=== PATIENT | male | born 1980 | race American Indian/Alaskan Native ===

== ENCOUNTER 2017-08-25 17:04 | Emergency (ER) | payer MEDICAID, OTHER ==
[2017-08-25 17:05] VITALS: BMI 25.0
[2017-08-25] MEDS ORDERED: Tmp-Smz 800 mg-160 mg DS Tab PO STA (17:48)
[2017-08-25] MEDS ORDERED: TDAP Vaccine 0.5 mL Syr IM ONE (17:48)
[2017-08-25 17:50] VITALS: O2SAT 100
--- NOTE | 2017-08-25 18:02 | ED PDOC ---
Arrival/HPI - General Chief Complaint: Lower Extremity Problem/Injury Time Seen by Provider: 08/25/17 17:22 Historian: Patient - History of Present Illness Narrative History of Present Illness (Text): 08/25/17 17:54 36yr old male presents today with blister to right great toe and maceration to the toes x 1 week. pt states last week he was working in the rain and his shoes were wet all day. pt states when he got home his feet were macerated and white. pt states he developed a blister over the right great toe and then cut the skin off of the blister. pt states he is seeing clear discharge from the bilateral big toes. pt denies pain. denies numbness, weakness and tingling in the extremities. pt denies fever/chills. no medications have been taken at home. no other complaints. Time/Duration: 1 week Symptom Course: Improving Past Medical History - Provider Review Nursing Documentation Reviewed: Yes - Travel History Have you recently traveled outside [place] w/in the past 3 mons?: No - Past History Past History: No Previous - Tetanus Immunization Tetanus Immunization: OTH - Psychiatric Hx Psychophysiologic Disorder: No Hx Substance Use: Yes (PERCOCET) - Past Surgical History Past Surgical History: No Previous - Suicidal Assessment Feels Threatened In Home Enviroment: No Family/Social History - Physician Review Nursing Documentation Reviewed: Yes Family/Social History: Unknown Family HX Smoking Status: Light Smoker < 10 Cigarettes Daily Hx Alcohol Use: Yes Hx Substance Use: Yes (PERCOCET) Hx Substance Use Treatment: No Allergies/Home Meds Allergies/Adverse Reactions: Allergies No Known Allergies Allergy (Verified 08/25/17 17:19) Review of Systems - Review of Systems Constitutional: absent: Fatigue, Fevers Respiratory: absent: SOB, Cough Cardiovascular: absent: Chest Pain, Palpitations Gastrointestinal: absent: Abdominal Pain, Nausea, Vomiting Genitourinary Male: absent: Dysuria, Frequency, Hematuria Musculoskeletal: absent: Back Pain Skin: Rash, Other (blister right great toe) Psychiatric: absent: Anxiety, Depression Physical Exam Vital Signs Reviewed: Yes Vital Signs Temp Pulse Resp BP Pulse Ox 08/25/17 17:20 98.8 F 77 16 143/83 100 Temperature: Afebrile Blood Pressure: Normal Pulse: Regular Respiratory Rate: Normal Appearance: Positive for: Well-Appearing, Non-Toxic, Comfortable Pain Distress: None Mental Status: Positive for: Alert and Oriented X 3 - Systems Exam Head: Present: Atraumatic Neck: Present: Normal Range of Motion Respiratory/Chest: Present: Clear to Auscultation Cardiovascular: Present: Regular Rate and Rhythm Abdomen: No: Tenderness Upper Extremity: Present: Normal Inspection, Normal ROM Lower Extremity: Present: Normal ROM, Other (right foot; there is an open blister over the volar aspect of the distal tip of the toe extending to the nail with slight erythema; no tenderness. cap refill< 2. sensation and distal pulses intact; No edema. there is a small open blister noted to the right 2nd toe; no erythema; no tenderness. left foot; no edema, no erythema; no ecchymosis; no purulent discharge, no blisters or lesions. + onchymyosis noted to all toenails. ). No: Tenderness, Swelling, Deformity, Capillary Refill < 2 s Neurological: Present: GCS=15, Speech Normal Skin: Present: Warm, Dry Psychiatric: Present: Alert, Oriented x 3 Medical Decision Making ED Course and Treatment: 08/25/17 18:34 pt is non toxic well appearing; no distress. stable vitals. fingerstick 84 keflex and bactrim given Po pt with blister to right great toe and 2nd toe; most likely from feet in wet boots all day - 4 days prior. will cover with abx for open blister. advised f/ u with rigging up man. Advised keeping feet clean and dry, and open to the air. advised immediate return if symptoms worsen, persist or fi new symptoms develop. Patient verbalizes understanding of discharge instructions and need for immediate followup. all aspects of this case were discussed the attending of record. Impression: blister, onychomycosis Keflex one capsule 4 times daily 7 days Bactrim 1 tablet twice daily 7 days Keep feet clean, DRY, and open to air. Follow-up with the rigging up man within the next 2 days Follow-up the primary care physician within the next 2 days Return immediately if symptoms worsen persist or if new concerning symptoms develop - Medication Orders Current Medication Orders: Discontinued Medications Cephalexin Monohydrate (Keflex) 500 mg PO STAT STA PRN Reason: Protocol Stop: 08/25/17 17:49 Last Admin: 08/25/17 17:59 Dose: 500 mg Tetanus/Reduced Diphtheria/Acell Pertussis (Boostrix Vaccine Inj) 0.5 ml IM .ONCE ONE Stop: 08/25/17 17:49 Last Admin: 08/25/17 17:59 Dose: 0.5 ml Trimethoprim/Sulfamethoxazole (Bactrim Ds Tab) 1 tab PO STAT STA PRN Reason: Protocol Stop: 08/25/17 17:49 Last Admin: 08/25/17 17:59 Dose: 1 tab Disposition/Present on Arrival - Present on Arrival Any Indicators Present on Arrival: No History of DVT/PE: No History of Uncontrolled Diabetes: No Urinary Catheter: No History of Decub. Ulcer: No History Surgical Site Infection Following: None - Disposition Have Diagnosis and Disposition been Completed?: Yes Diagnosis: Blister, Onychomycosis Disposition: HOME/ ROUTINE Disposition Time: 18:15 Patient Plan: Discharge Patient Problems: Current Active Problems Problem Status Onset Blister Acute Onychomycosis Acute Condition: GOOD Discharge Instructions (ExitCare): Blisters, Fungal Nail Infections Additional Instructions: Keflex one capsule 4 times daily 7 days Bactrim 1 tablet twice daily 7 days Keep feet clean, DRY, and open to air. Follow-up with the rigging up man within the next 2 days Follow-up the primary care physician within the next 2 days Return immediately if symptoms worsen persist or if new concerning symptoms develop Prescriptions: Cephalexin [Keflex] 500 mg PO QID #28 capsule Sulfamethoxazole/Trimethoprim [Bactrim DS 800 mg-160 mg] 1 tab PO BID #14 tab Referrals: Aric Hanson DPM [Staff Provider] - Follow up with primary [facility] [Outside] - Follow up with primary [facility] [Outside] - Follow up with primary Paty Pruitt MD [Staff Provider] - Follow up with primary Forms: [employer] (Mauritanian), WORK NOTE
[2017-08-25 18:58] VITALS: BP 140/82; PULSE 70; RESP 18; TEMP 98.5
== END 2017-08-25 18:56 | disposition home or self-care (01) ==
LOC: ED 17:04
DX: S90.421A Blister (nonthermal), right great toe, initial encounter (principal); S90.424A Blister (nonthermal), right lesser toe(s), initial encounter; X58.XXXA Exposure to other specified factors, initial encounter; Y92.89 Other specified places as the place of occurrence of the external cause; Y99.8 Other external cause status; B35.1 Tinea unguium; Z23 Encounter for immunization

== ENCOUNTER 2017-09-02 14:21 | Emergency (ER) | payer MEDICAID, OTHER ==
[2017-09-02 14:22] VITALS: BMI 25.0
--- NOTE | 2017-09-02 14:50 | ED PDOC ---
Arrival/HPI - General Chief Complaint: Trauma Time Seen by Provider: 09/02/17 14:43 Historian: Patient - History of Present Illness Narrative History of Present Illness (Text): 09/02/17 14:45 36 year old male, with past history of substance abuse, presents to the Emergency department via EMS s/p slip and fall prior to arrival. Patient admits to illicit drug use and claims he slipped and fell and hit his head with probable loss of consciousness. Patient additionally admits to smoking weed prior to arrival but does not know what was in it. pt felt funny after smoking it; Patient denies any suicidal ideation, homicidal ideation or hallucinations including visual, auditory and tactile. Patient does not know why he was brought to the Emergency department and wants to be released. Patient currently denies any medical complaints. Patient denies any fever/chills/sweats, chest pain/shortness of breath/palpitations, abdominal pain/nausea/vomiting, numbness/ tingling, urinary/bowel changes/complaints, sick contact/travel or any other complaints; no gross bleeding noted; Patient was brought to the Emergency department for medical clearance. pt denied slurr speech pt denied any other complaints PCP: unknown Time/Duration: Prior to Arrival Symptom Onset: Gradual Activities at Onset: Light Context: Street Past Medical History - Provider Review Nursing Documentation Reviewed: Yes - Travel History Have you recently traveled outside US w/in the past 3 mons?: No - Past History Past History: No Previous - Infectious Disease Hx of Infectious Diseases: None - Tetanus Immunization Tetanus Immunization: OTH - Psychiatric Hx Substance Use: Yes - Past Surgical History Past Surgical History: No Previous - Suicidal Assessment Feels Threatened In Home Enviroment: No Family/Social History - Physician Review Nursing Documentation Reviewed: Yes Family/Social History: No Known Family HX Smoking Status: Light Smoker < 10 Cigarettes Daily Hx Alcohol Use: Yes Hx Substance Use: Yes Hx Substance Use Treatment: No Allergies/Home Meds Allergies/Adverse Reactions: Allergies No Known Allergies Allergy (Verified 08/25/17 17:19) Review of Systems - Physician Review All systems were reviewed & negative as marked: Yes - Review of Systems Constitutional: Normal. absent: Fevers Eyes: Normal. absent: Vision Changes ENT: Normal Respiratory: Normal. absent: SOB Cardiovascular: Normal. absent: Chest Pain, Palpitations Gastrointestinal: Normal. absent: Abdominal Pain, Stool Changes, Nausea, Vomiting Genitourinary Male: Normal. absent: Urinary Output Changes Musculoskeletal: Other (right foot pain). absent: Arthralgias, Back Pain, Neck Pain Skin: Normal Neurological: Normal Endocrine: Normal Hemo/Lymphatic: Normal Psychiatric: Normal. absent: Suicidal Ideation Physical Exam - Physical Exam Narrative Physical Exam (Text): 09/02/17 14:55 General: alert/awake, GCS = 15, oriented x 3, sitting on bed, uncomfortable, slightly uncooperative, interactive; anxious Head: NC, noted right mid frontal forehead slight swelling, NO skin abrasion/ bleeding/lacerations noted, NO gross tenderness, no fluctuance noted; no gross deformities noted EYE: PERRLA, EOMI, sclera anicteric, no nystagmus, no photophobia; visual field intact b/l Facial: WNL Oral: uvula/tongue are midline, no exudate/lesions, no drooling/stridor, no dysphonia; fair dentitions; mild dry oral mucosa NECK: intact ROM, no midline tenderness, no nuchal rigidity, no meningeal signs ; no step off Chest: CTA b/l, no w/r/r; no tachypenia, no accessory muscle use noted Chest Wall: no crepitus, no lesions, no gross deformities, no focal tenderness Cardiac: +S1, +S2, no m/r/r, no tachycardia Abdominal: +BS, soft/nd/nt, well nourished patient; no masses/rebound/guarding/ rigidity; no cisneros's sign, no mcburney's point tenderness Extremities: intact ROM, strength 5/5 grossly intact in all limbs, neurovasc intact b/l; + ambulatory; reflex +2/2 BACK: no step off, no midline tenderness, NO crepitus, no gross deformities noted; Intact ROM SKIN: cap refill < 1 sec, no ulcerations, no petechiae, no rashes NEURO: CNII-XII WNL, no facial asymmetries, no slurr speech, oriented x 3 NIH stroke scale ~ 0 Psych: normal insight, + anxious affect Vital Signs Reviewed: Yes Vital Signs Temp Pulse Resp BP Pulse Ox 09/02/17 14:44 98.4 F 92 H 18 148/78 99 Temperature: Afebrile Blood Pressure: Hypertensive Pulse: Regular Respiratory Rate: Normal Appearance: Positive for: Well-Appearing, Uncomfortable. No: Ill-Appearing, Unkept Pain Distress: None Mental Status: Positive for: Alert and Oriented X 3 - Systems Exam Head: Present: Normocephalic Medical Decision Making ED Course and Treatment: 09/02/17 14:55 Impression: 36 year old male was brought to the Emergency department s/p illicit drug use and fall. I have considered all differential diagnoses regarding patients chief medical complaints/clinical findings which include but are not limited to: closed head injury; fall; drug use Plan: -- observe -- Reassess and disposition Progress Notes: 3:00pm pt states he wants to go home offered pt to have a CT head to make sure there arent serious medical issues, pt states he felt fine and would like to go home pt is refusing head ct pt remains ambulatory pt states he will be going home, taking a cab pt is made aware of his medical results pt is encouraged NO MORE DRUG use, no alcohol pt will f/u as directed pt will be discharged home Re-evaluation Time: 15:00 Reassessment Condition: Unchanged - Scribe Statement The provider has reviewed the documentation as recorded by the Scribe Melody Webster. All medical record entries made by the Scribe were at my direction and personally dictated by me. I have reviewed the chart and agree that the record accurately reflects my personal performance of the history, physical exam, medical decision making, and the department course for this patient. I have also personally directed, reviewed, and agree with the discharge instructions and disposition. Disposition/Present on Arrival - Present on Arrival Any Indicators Present on Arrival: No History of DVT/PE: No History of Uncontrolled Diabetes: No Urinary Catheter: No History of Decub. Ulcer: No History Surgical Site Infection Following: None - Disposition Have Diagnosis and Disposition been Completed?: Yes Diagnosis: Drug abuse, Head injury, General medical exam Disposition: HOME/ ROUTINE Disposition Time: 15:00 Condition: STABLE Discharge Instructions (ExitCare): Concussion in Adults, Closed Head Injury, Drug Abuse and Drug Addiction (DC), Drug Abuse Treatment Print Language: ESTONIAN Additional Instructions: Make sure to see your doctor in 1-2 days DRINK PLENTY OF FLUIDS DONT DO DRUGS DONT DRINK ALCOHOL DONT SMOKE keep your feet clean and dry take your medications as prescribed RETURN TO ED IF worse pain, cant breath, persistent vomiting, high fever >101- 102 for hours, altered behavior, slurr speech, facial changes, focal weakness ( arm/leg or both), unable to urinate, heavy/persistent bleeding, passing out, chest pain, or other medical emergencies Referrals: [facility] [Outside] - Follow up with primary Eliazar Howard [place] [Outside] - Follow up with primary [facility] [place]] - Follow up with primary Forms: [employer] (French)
[2017-09-02 14:51] VITALS: PULSE 92; O2SAT 99
[2017-09-02 19:45] VITALS: BP 124/72; RESP 19; TEMP 98
== END 2017-09-02 14:51 | disposition home or self-care (01) ==
LOC: ED 14:21
DX: Z00.00 Encounter for general adult medical examination without abnormal findings (principal); F19.10 Other psychoactive substance abuse, uncomplicated; S09.90XA Unspecified injury of head, initial encounter; W01.0XXA Fall on same level from slipping, tripping and stumbling without subsequent striking against object, initial encounter

== ENCOUNTER 2017-11-10 15:08 | Emergency (ER) | payer MEDICAID, OTHER ==
[2017-11-10 15:18] VITALS: O2SAT 100; BMI 26.6
--- NOTE | 2017-11-10 15:54 | ED PDOC ---
Arrival/HPI - General Chief Complaint: Substance Abuse Time Seen by Provider: 11/10/17 15:22 Historian: Patient - History of Present Illness Narrative History of Present Illness (Text): 11/10/17 17:26 A 36 year old male, whose past medical history includes substance abuse of cocaine and marijuana, brought into the emergency department for acid use earlier today. Patient denies suicidal/homicidal ideation. States he tripped over his feet and resulted in hitting his head only. Patient denies shortness of breath, chest pain, or any other complaints at this time. He does not take any blood thinners. Notes he is uncertain when his last tetanus shot was. No PMD Past Medical History - Provider Review Nursing Documentation Reviewed: Yes - Past History Past History: No Previous - Infectious Disease Hx of Infectious Diseases: None - Tetanus Immunization Tetanus Immunization: OTH - Psychiatric Hx Psychophysiologic Disorder: No Hx Substance Use: Yes - Past Surgical History Past Surgical History: No Previous - Anesthesia Hx Anesthesia: No - Suicidal Assessment Feels Threatened In Home Enviroment: No Family/Social History - Physician Review Nursing Documentation Reviewed: Yes Family/Social History: No Known Family HX Smoking Status: Light Smoker < 10 Cigarettes Daily Hx Alcohol Use: Yes Hx Substance Use: Yes Substance used: Acid, Cocaine Hx Substance Use Treatment: No Allergies/Home Meds Allergies/Adverse Reactions: Allergies No Known Allergies Allergy (Verified 11/10/17 15:17) Review of Systems - Review of Systems Constitutional: Normal Eyes: Normal ENT: Normal Respiratory: Normal Cardiovascular: Normal Gastrointestinal: Normal Genitourinary Male: Normal Musculoskeletal: Normal Skin: Normal Neurological: Normal Endocrine: Normal Hemo/Lymphatic: Normal Psychiatric: Normal Physical Exam Vital Signs Reviewed: Yes Vital Signs Temp Pulse Resp BP Pulse Ox 11/10/17 18:35 65 19 118/60 100 11/10/17 15:18 97.9 F 72 19 123/75 100 11/10/17 15:17 97.9 F 72 19 123/75 100 Temperature: Afebrile Blood Pressure: Normal Pulse: Regular Respiratory Rate: Normal Appearance: Positive for: Well-Appearing Pain Distress: None Mental Status: Positive for: Alert and Oriented X 3 - Systems Exam Head: Present: Laceration (2 cm laceration to left eyebrow) Pupils: Present: PERRL Extroacular Muscles: Present: EOMI Conjunctiva: Present: Normal Mouth: Present: Moist Mucous Membranes Neck: Present: Normal Range of Motion Respiratory/Chest: Present: Clear to Auscultation, Good Air Exchange. No: Respiratory Distress, Accessory Muscle Use Cardiovascular: Present: Regular Rate and Rhythm, Normal S1, S2. No: Murmurs Abdomen: Present: Other (palpable right quadrant pain.). No: Tenderness, Distention, Peritoneal Signs Back: Present: Normal Inspection Upper Extremity: Present: Normal Inspection. No: Cyanosis, Edema Lower Extremity: Present: Normal Inspection. No: Edema Neurological: Present: GCS=15, CN II-XII Intact, Speech Normal Skin: Present: Warm, Dry, Normal Color. No: Rashes Psychiatric: Present: Alert, Oriented x 3, Normal Insight, Normal Concentration Medical Decision Making ED Course and Treatment: 11/10/17 17:30 Impression: 36 year old male brought in for acid use earlier today. Physical exam shows left eyebrow 2 cm laceration; palpable abdominal pain to right quadrant; no other acute findings on examination. Plan: -- EKG -- Abd/Pelvis CT -- Head CT -- Orbits/Facial CT -- Chest X-ray (done) -- Narcan -- Labs -- Boostrix Vaccine -- Reassess and disposition Progress Notes: EKG: Ordered, reviewed, and independently interpreted the EKG. Rate : 63 BPM Rhythm : NSR Interpretation : No STEMI. Flat v5, v6. No ST-segment elevations or depressions , no T-wave inversions, normal intervals. Comparison : No previous EKG for comparison. 11/10/2017 18:32 Chest X-ray IMPRESSION: No active disease. Dictator: Tyler Lima MD 11/10/2017 19:[address] IMPRESSION: 1. No acute intracranial findings. 2. Nasal bone fracture. Dictator: Charmaine Farley MD 11/10/2017 19:47 Orbits/Facial CT IMPRESSION: No acute findings. Dictator: Charmaine Farley MD 11/10/2017 19:56 Abd/Pelvis CT IMPRESSION: No definite acute findings. Dictator: Charmaine Farley MD 11/10/2017 20:[address] IMPRESSION: No acute findings. Dictator: Charmaine Farley MD PROCEDURE: LACERATION REPAIR Performed by the emergency provider Location: L eyebrow Length: 2cm cm Description: clean wound edges,no foreign bodies Distal CMS: Normal. No deficits. Neurovascularly intact. Anesthesia: none Preparation: The wound was cleaned with NS and [place]. The area was prepped and draped in the usual sterile fashion. Exploration: The wound was explored and no foreign bodies were found. Procedure: The wound was closed with dermabond There was good. Post-Procedure: Good closure and hemostasis. The patient tolerated the procedure well and there were no complications. CSM remains intact. Post procedure dressing applied. Instructed pt to stop taking drugs. labs, imaging unremarkable. Pt w/ stable neuro exam. Clear for d/c home. - Lab Interpretations Lab Results: 11/10/17 15:20 11/10/17 15:20 Lab Results 11/10/17 15:20: Salicylates < 1 L, Acetaminophen < 10.0 L 11/10/17 15:20: TSH 3rd Generation 2.19, Alcohol, Quantitative < 10 11/10/17 15:20: Sodium 140, Potassium 3.9, Chloride 104, Carbon Dioxide 24, Anion Gap 16, BUN 11, Creatinine 0.8, Est GFR ( Amer) > 60, Est GFR (Non- Af Amer) > 60, Random Glucose 109, Calcium 8.8, Magnesium 2.1, Total Bilirubin 0.6, AST 39, ALT 30, Alkaline Phosphatase 71, Total Protein 7.0, Albumin 3.9, Globulin 3.2, Albumin/Globulin Ratio 1.2 11/10/17 15:20: WBC 7.2, RBC 3.86, Hgb 11.2 L, Hct 33.8 L, MCV 87.6, MCH 29.0, MCHC 33.1, RDW 13.1, Plt Count 365, MPV 10.1, Gran % 53.7, Lymph % (Auto) 33.0, [place] % (Auto) 7.8 H, Eos % (Auto) 4.9, Baso % (Auto) 0.6, Gran # 3.84, Lymph # ( Auto) 2.4, [place] # (Auto) 0.6, Eos # (Auto) 0.4, Baso # (Auto) 0.04 I have reviewed the lab results: Yes - RAD Interpretation Radiology Orders: 11/10/17 16:15 ABD & PELVIS IV CONTRAST ONLY [CT] Stat HEAD W/O CONTRAST [CT] Stat CHEST PORTABLE [RAD] Stat 11/10/17 16:16 ORBITS/ FACIALS W/O CONTRAST [CT] Stat 11/10/17 16:17 CERVICAL SPINE W/O CONTRAST [CT] Stat - Medication Orders Current Medication Orders: Discontinued Medications Naloxone HCl (Narcan) 0.4 mg IVP STAT STA Stop: 11/10/17 15:57 Last Admin: 11/10/17 16:01 Dose: 0.4 mg IVP Administration Document 11/10/17 16:01 [email or web address] (Rec: 11/10/17 16:01 [email or web address] [id number]) Charges for Administration # of IVP Administrations 1 Tetanus/Reduced Diphtheria/Acell Pertussis (Boostrix Vaccine Inj) 0.5 ml IM .ONCE ONE Stop: 11/10/17 15:58 Last Admin: 11/10/17 16:02 Dose: Immunization Registry Document 11/10/17 16:02 [email or web address] (Rec: 11/10/17 16:02 [email or web address] [id number]) Immunization Registry Consent Date 08/25/17 - Scribe Statement The provider has reviewed the documentation as recorded by the Brenda Willson Provider Scribe Provider Scribe Attestation: All medical record entries made by the Satishibyohannes were at my direction and personally dictated by me. I have reviewed the chart and agree that the record accurately reflects my personal performance of the history, physical exam, medical decision making, and the department course for this patient. I have also personally directed, reviewed, and agree with the discharge instructions and disposition. Disposition/Present on Arrival - Present on Arrival Any Indicators Present on Arrival: No History of DVT/PE: No History of Uncontrolled Diabetes: No Urinary Catheter: No History of Decub. Ulcer: No History Surgical Site Infection Following: None - Disposition Have Diagnosis and Disposition been Completed?: Yes Diagnosis: Drug abuse, Head trauma, Laceration of head Disposition: HOME/ ROUTINE Disposition Time: 20:05 Patient Problems: Current Active Problems Problem Status Onset Drug abuse Acute Head trauma Acute Laceration of head Acute Condition: GOOD Discharge Instructions (ExitCare): Laceration Repair With Glue (DC), Drug Abuse and Drug Addiction (DC), Minor Head Injury Additional Instructions: STOP USING DRUGS. ITS BAD FOR YOU. GEMMA PRESSLEY, thank you for letting us take care of you today. Your provider was Jadon Odell and you were treated for SUBSTANCE ABUSE. The emergency medical care you received today was directed at your acute symptoms. If you were prescribed any medication, please fill it and take as directed. It may take several days for your symptoms to resolve. Return to the Emergency Department if your symptoms worsen, do not improve, or if you have any other problems. Please contact your doctor or call one of the physicians/clinics you have been referred to that are listed on the Patient Visit Information form that is included in your discharge packet. Bring any paperwork you were given at discharge with you along with any medications you are taking to your follow up visit. Our treatment cannot replace ongoing medical care by a primary care provider outside of the emergency department. Thank you for allowing the [facility] team to be part of your care today. If you had an X-Ray or CT scan: A Radiologist will review the ED reading if any change in treatment is needed we will contact you. If you had a blood, urine, or wound culture: It will take several days for the results, if any change in treatment is needed we will contact you. If you had an STI test: It will take 48 hours for the results. Please call after 1 week if you have not heard back. Referrals: Darshana Gama MD [Medical Doctor] - Follow up with primary Forms: [employer] (North Korean)
[2017-11-10] MEDS ORDERED: Naloxone 0.4 mg/ml Inj (Adult) IVP STA (15:56)
[2017-11-10] MEDS ORDERED: TDAP Vaccine 0.5 mL Syr IM ONE (15:57)
[2017-11-10] MEDS ORDERED: Naloxone 0.4 mg/ml Inj (Adult) ONE (15:58)
[2017-11-10 16:35] LABS: BASO # 0.04 K/mm3 (0.0-2.0); BASO % 0.6 % (0.0-3.0); EOS # 0.4 (0.0-0.7); EOS % 4.9 % (1.5-5.0); GRAN # 3.84 (1.4-6.5); GRAN % 53.7 % (50.0-68.0); HEMOGLOBIN 11.2 g/dL (14.0-18.0); LYMPH # 2.4 (1.2-3.4); MEAN CELL VOLUME 87.6 fl (80.0-105.0); MEAN CORPUSCULAR HGB CONC 33.1 g/dl (31.0-37.0); MEAN PLATELET VOLUME 10.1 fl (7.0-11.0); MONO # 0.6 (0.1-0.6); MONO % 7.8 % (1.0-6.0); RBC 3.86 10^6/uL (3.5-6.1); RED CELL DISTRIBUTION WIDTH 13.1 % (11.5-14.5); WHITE BLOOD COUNT 7.2 10^3/ul (4.5-11.0)
[2017-11-10 16:44] LABS: ACETAMINOPHEN < 10.0 ug/ml (10.0-20.0); ALB/GLOB RATIO 1.2 (1.1-1.8); ALBUMIN 3.9 g/dL (3.0-4.8); ALT/SGPT 30 U/L (7-56); AST/SGOT 39 U/L (17-59); BLOOD UREA NITROGEN 11 mg/dL (7-21); CALCIUM 8.8 mg/dL (8.4-10.5); GFR AFRICAN-AMERICAN > 60; GFR NON-AFRICAN AMERICAN > 60; SALICYLATE < 1 mg/dL (2.0-20.0)
[2017-11-10] MEDS ORDERED: Iohexol 350 MG/100 ML VIAL ONE (17:48)
--- NOTE | 2017-11-10 18:34 | RAD ---
Date of service: 11/10/2017 HISTORY: fall COMPARISON: GoNo prior. FINDINGS: LUNGS: No active pulmonary disease. PLEURA: No significant pleural effusion identified, no pneumothorax apparent. CARDIOVASCULAR: Normal. OSSEOUS STRUCTURES: No significant abnormalities. VISUALIZED UPPER ABDOMEN: Normal. OTHER FINDINGS: None. IMPRESSION: No active disease.
[2017-11-11 03:10] VITALS: BP 114/69; PULSE 60; RESP 18; TEMP 98
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
--- NOTE | 2017-11-11 10:32 | CARD ---
APPROVED REPORT Date of service: 11/10/2017 EKG Measurement Heart [id number] TN [id number] <Conclusion> Normal sinus rhythm Nonspecific T wave abnormality Abnormal ECG
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
--- NOTE | 2017-11-11 17:15 | CT ---
Date of service: 11/10/2017 PROCEDURE: CT Abdomen and Pelvis HISTORY: Fall COMPARISON: None. TECHNIQUE: Contiguous axial images of the abdomen and pelvis performed following intravenous injection of 100 cc Omnipaque 350. Additional 2D sagittal and coronal reformats generated. Radiation dose: Total exam DLP = 654.63 mGy-cm. This CT exam was performed using one or more of the following dose reduction techniques: Automated exposure control, adjustment of the mA and/or kV according to patient size, and/or use of iterative reconstruction technique. Note that study is suboptimal due to crossing streak and beam hardening artifact arising from the upper extremities which have not been moved from the field of view. Additionally, the study is further limited due to suboptimal on opacification related to timing of contrast injection and scan. FINDINGS: LOWER THORAX: Mild passive/dependent type atelectasis both posterior lower lung beckett. No effusion or basilar pneumothorax. Heart size normal. No significant pericardial effusion. LIVER: Unremarkable. No gross lesion or ductal dilatation. GALLBLADDER AND BILE DUCTS: Unremarkable. PANCREAS: Unremarkable. No mass. No ductal dilatation. SPLEEN: Unremarkable. No splenomegaly. ADRENALS: Unremarkable. KIDNEYS AND URETERS: Unremarkable. No stone or hydronephrosis. There is a very tiny approximately 4 mm low-attenuation focus upper pole left kidney that is too small to characterize though could represent small renal cyst. BLADDER: Grossly unremarkable. REPRODUCTIVE: Unremarkable. APPENDIX: Unremarkable. BOWEL: Unremarkable. No obstruction. No gross mural thickening. PERITONEUM: Unremarkable. No fluid collection. No free air. LYMPH NODES: Unremarkable. No enlarged lymph nodes. VASCULATURE: Unremarkable. No aortic aneurysm. BONES: No acute fracture seen. Minor degenerative spondylosis of the lumbosacral spine OTHER FINDINGS: None. IMPRESSION: Limited study due to streak and beam hardening artifact related to upper extremities that have not been moved from the field of view as well as suboptimal contrast opacification as above. No acute intra abdominal posttraumatic sequela so far as can be determined. Findings suggest mild constipation. Probable small cyst left kidney.
== END 2017-11-10 22:32 | disposition home or self-care (01) ==
LOC: ED 15:08
DX: S01.112A Laceration without foreign body of left eyelid and periocular area, initial encounter (principal); W18.40XA Slipping, tripping and stumbling without falling, unspecified, initial encounter; F17.210 Nicotine dependence, cigarettes, uncomplicated
CPT/HCPCS: 12011; 70450; 70480; 71045; 72125; 74177; 80053; 80320; 80329; 83735; 84443; 85025; 93005; 96374; 99283; J2310; Q9967

== ENCOUNTER 2018-01-26 22:04 | Emergency (ER) | payer OTHER ==
[2018-01-26 22:09] VITALS: BMI 25.0
[2018-01-26] MEDS ORDERED: Naloxone 0.4 mg/ml Inj (Adult) IVP STA (22:21)
[2018-01-26] MEDS ORDERED: Naloxone 0.4 mg/ml Inj (Adult) ONE (22:22)
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
[2018-01-26 22:39] LABS: BASO # 0.03 K/mm3 (0.0-2.0); BASO % 0.5 % (0.0-3.0); EOS # 0.2 (0.0-0.7); EOS % 3.3 % (1.5-5.0); GRAN # 3.83 (1.4-6.5); GRAN % 62.5 % (50.0-68.0); HEMOGLOBIN 13.5 g/dL (14.0-18.0); LYMPH # 1.6 (1.2-3.4); LYMPH % 26.3 % (22.0-35.0); MEAN CELL VOLUME 88.6 fl (80.0-105.0); MEAN CORPUSCULAR HEMOGLOBIN 30.1 pg (25.0-35.0); MEAN PLATELET VOLUME 9.5 fl (7.0-11.0); MONO # 0.5 (0.1-0.6); MONO % 7.4 % (1.0-6.0); RBC 4.48 10^6/uL (3.5-6.1); RED CELL DISTRIBUTION WIDTH 12.5 % (11.5-14.5); WHITE BLOOD COUNT 6.1 10^3/uL (4.5-11.0)
[2018-01-26 22:47] LABS: PARTIAL THROMBOPLASTIN TIME 32.4 Seconds (25.1-36.5); PROTHROMBIN TIME 11.4 SECONDS (9.4-12.5)
[2018-01-26 22:49] LABS: ALB/GLOB RATIO 1.3 (1.1-1.8)
[2018-01-26 22:51] LABS: ALBUMIN 4.4 g/dL (3.0-4.8); ALT/SGPT 33 U/L (7-56); AST/SGOT 53 U/L (17-59); BLOOD UREA NITROGEN 15 mg/dL (7-21); CALCIUM 9.2 mg/dL (8.4-10.5); GFR NON-AFRICAN AMERICAN > 60
[2018-01-26 23:25] LABS: VENOUS BLOOD GAS BASE EXCESS 1.2 mmol/L (0.0-2.0); VENOUS BLOOD GAS PO2 197 mm/Hg (30-55); VENOUS BLOOD PH 7.41 (7.32-7.43)
[2018-01-26 23:52] LABS: PH,URINE 7.5 (4.7-8.0); URINE APPEARANCE CLEAR (CLEAR); URINE BILIRUBIN NEGATIVE (NEGATIVE); URINE BLOOD TRACE-INTACT (NEGATIVE); URINE COLOR LIGHT YELLOW (YELLOW); URINE GLUCOSE (UA) NEGATIVE (NEGATIVE); URINE LEUKOCYTE ESTERASE NEGATIVE Leu/uL (NEGATIVE); URINE PROTEIN NEGATIVE mg/dL (<30 mg/dL)
[2018-01-26 23:53] LABS: BARBITURATES, UR NEGATIVE (NEGATIVE)
[2018-01-26 23:58] LABS: BENZODIAZEPINES, UR NEGATIVE (NEGATIVE); OPIATES, UR POSITIVE (NEGATIVE); PHENCYCLIDINE, UR NEGATIVE (NEGATIVE)
[2018-01-27 00:27] LABS: URINE BACTERIA TRACE (NEG); URINE EPITHELIAL CELLS 0 - 2 /hpf (0-5); URINE RBC 0 - 2 /hpf (0-2); URINE WBC 0 - 2 /hpf (0-6)
[2018-01-27 08:14] VITALS: BP 152/88; PULSE 76; RESP 16; O2SAT 98
--- NOTE | 2018-01-27 08:24 | RAD ---
Date of service: 01/26/2018 HISTORY: aspiration COMPARISON: 11/10/2017 FINDINGS: LUNGS: No active pulmonary disease. PLEURA: No significant pleural effusion identified, no pneumothorax apparent. CARDIOVASCULAR: No aortic atherosclerotic calcification present. Normal cardiac size. No pulmonary vascular congestion. OSSEOUS STRUCTURES: No significant abnormalities. VISUALIZED UPPER ABDOMEN: Normal. OTHER FINDINGS: None. IMPRESSION: No active disease.
[2018-01-27 08:27] VITALS: TEMP 98.1
--- NOTE | 2018-01-27 08:50 | CT ---
Date of service: 01/26/2018 PROCEDURE: CT HEAD WITHOUT CONTRAST. HISTORY: altered mentation COMPARISON: 11/10/2017 TECHNIQUE: Axial computed tomography images were obtained through the head/brain without intravenous contrast. Radiation dose: Total exam DLP = 1226.03 mGy-cm. This CT exam was performed using one or more of the following dose reduction techniques: Automated exposure control, adjustment of the mA and/or kV according to patient size, and/or use of iterative reconstruction technique. FINDINGS: HEMORRHAGE: No intracranial hemorrhage. BRAIN: No mass effect or edema. No atrophy or chronic microvascular ischemic changes. VENTRICLES: Unremarkable. No hydrocephalus. CALVARIUM: Unremarkable. PARANASAL SINUSES: Minimal mucosal thickening in the ethmoid and maxillary sinuses MASTOID AIR CELLS: Unremarkable as visualized. No inflammatory changes. OTHER FINDINGS: The report concurs with the preliminary [facility] report IMPRESSION: No acute intracranial findings
--- NOTE | 2018-01-27 15:37 | CARD ---
APPROVED REPORT Date of service: 01/26/2018 EKG Measurement Heart [id number] [place] [id number] <Conclusion> Normal sinus rhythm Normal ECG
== END 2018-01-27 09:32 | disposition home or self-care (01) ==
LOC: ED 22:04
DX: F19.10 Other psychoactive substance abuse, uncomplicated (principal); F17.210 Nicotine dependence, cigarettes, uncomplicated
CPT/HCPCS: 70450; 71045; 80053; 80320; 80324; 80345; 80346; 80349; 80353; 80358; 80361; 81001; 82803; 82948; 83735; 83992; 85025; 85610; 85730; 93005; 96374; 96375; 99285; J0360; J2060; J2310

== ENCOUNTER 2018-04-03 14:04 | Emergency (ER) | payer OTHER ==
[2018-04-03 14:08] VITALS: BMI 23.5
[2018-04-03 14:15] VITALS: RESP 18; TEMP 98.2
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
[2018-04-03 17:23] VITALS: PULSE 75; O2SAT 98
[2018-04-03 17:40] LABS: BARBITURATES, UR NEGATIVE (NEGATIVE)
[2018-04-03 17:48] LABS: BENZODIAZEPINES, UR POSITIVE (NEGATIVE); OPIATES, UR POSITIVE (NEGATIVE); PHENCYCLIDINE, UR NEGATIVE (NEGATIVE)
[2018-04-03 17:54] LABS: URINE APPEARANCE CLEAR (CLEAR); URINE BILIRUBIN NEGATIVE (NEGATIVE); URINE BLOOD NEGATIVE (NEGATIVE); URINE COLOR YELLOW (YELLOW); URINE GLUCOSE (UA) NEGATIVE (NEGATIVE); URINE LEUKOCYTE ESTERASE NEGATIVE Leu/uL (NEGATIVE); URINE PROTEIN NEGATIVE mg/dL (<30 mg/dL); URINE UROBILINOGEN 0.2 E.U./dL (<1 E.U./dL)
[2018-04-03 18:34] VITALS: BP 125/87
--- NOTE | 2018-04-03 20:31 | CARD ---
APPROVED REPORT Date of service: 04/03/2018 EKG Measurement Heart [id number] <Conclusion> Normal sinus rhythm Normal ECG
== END 2018-04-03 18:01 | disposition home or self-care (01) ==
LOC: ED 14:04
DX: S02.2XXA Fracture of nasal bones, initial encounter for closed fracture (principal); Y08.89XA Assault by other specified means, initial encounter; F19.10 Other psychoactive substance abuse, uncomplicated
CPT/HCPCS: 70486; 71101; 73090; 80324; 80345; 80346; 80349; 80353; 80358; 80361; 81003; 83992; 93005; 96372; 99284; J1885

== ENCOUNTER 2018-04-12 09:24 | Emergency (ER) | payer OTHER ==
[2018-04-12 09:24] VITALS: BMI 23.5
[2018-04-12 09:38] VITALS: RESP 18
[2018-04-12] MEDS ORDERED: Lidocaine 5% Patch TD STA (09:53)
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
[2018-04-12 12:24] VITALS: BP 132/77; PULSE 78; TEMP 98; O2SAT 98
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
== END 2018-04-12 12:00 ==
LOC: ED 09:24
DX: S80.01XA Contusion of right knee, initial encounter (principal); V48.5XXA Car driver injured in noncollision transport accident in traffic accident, initial encounter; Y92.410 Unspecified street and highway as the place of occurrence of the external cause; Z65.3 Problems related to other legal circumstances
CPT/HCPCS: 73560; 96372; 99284; J1885